=== PATIENT | female | born 1985 | race Hispanic/Latino ===

== ENCOUNTER 2018-04-02 06:03 | Emergency (ER) | payer SELFPAY ==
[2018-04-02] MEDS ORDERED: ONDANSETRON 4 MG (ODT) TAB ONE (06:26)
[2018-04-02] MEDS ORDERED: CEFTRIAXONE 1000 MG/VIAL ONE (06:35)
[2018-04-02] MEDS ORDERED: WATER FOR INJ,STERILE 10 ML ONE (06:36)
[2018-04-02 06:41] LABS: Urine Amorphous Sediment 2+ /HPF (NONE SEEN); Urine Bacteria LOADED /HPF (<20); Urine Culture Reflex Order NOT NEEDED; Urine RBC NONE SEEN /HPF (NONE SEEN)
[2018-04-02 06:44] LABS: Urine Blood NEGATIVE (NEG); Urine Glucose NEGATIVE (NEG); Urine Protein NEGATIVE (NEG); Urine Specific Gravity 1.015 (1.005-1.030); Urine pH 7.5 (5.0-7.0)
--- NOTE | 2018-04-02 08:24 | ER ---
Nurse's Notes [facility] Name: Mic Stokes Age: 32 yrs Sex: Female : 1985 Arrival Date: 04/02/2018 Time: 06:03 Bed 5 Private MD: None, None Diagnosis: state-8 weeks 4 days per US;Urinary tract infection, site not specified Presentation: 04/02 06:05 Presenting complaint: Patient states: that yesterday at 1700 she started to have lower fc back pain and radiates around to lower abd. Positive for nausea and vomiting but denies any diarrhea. Also denies any urinary problems. Transition of care: patient was not received from another setting of care. Onset of symptoms was April 01, 2018 at 17:00. Risk Assessment: Do you want to hurt yourself or someone else? Patient reports no desire to harm self or others. Care prior to arrival: None. 06:05 Method Of Arrival: Ambulatory 06:05 Acuity: GREGG 3 fc 06:16 Initial Sepsis Screen: Does the patient meet any 2 criteria? No. Patient's initial ak1 sepsis screen is negative. Does the patient have a suspected source of infection? No. Patient's initial sepsis screen is negative. Triage Assessment: 06:17 General: Appears in no apparent distress. Behavior is calm, cooperative. Pain: ak1 Complains of pain in suprapubic area, right lower quadrant and left lower quadrant. EENT: No signs and/or symptoms were reported regarding the EENT system. Neuro: No deficits noted. Cardiovascular: No deficits noted. Respiratory: No deficits noted. GI: Abdomen is flat, Bowel sounds present X 4 quads. Abd is soft X 4 quads Abdomen is tender to palpation in left upper quadrant and left lower quadrant Reports lower abdominal pain, nausea, vomiting. 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 - Social history:: Smoking status: Patient/guardian denies using tobacco. - Ebola Screening: : Patient negative for fever greater than or equal to 101.5 degrees Fahrenheit, and additional compatible Ebola Virus Disease symptoms Patient denies exposure to infectious person Patient denies travel to an Ebola-affected area in the 21 days before illness onset. Screenin:15 Abuse screen: Denies threats or abuse. Nutritional screening: No deficits noted. Tuberculosis screening: No symptoms or risk factors identified. Fall Risk None identified. Assessment: 06:40 Reassessment: Patient appears in no apparent distress at this time. No changes from ak1 previously documented assessment. Patient is alert, oriented x 3, equal unlabored respirations, skin warm/dry/pink. see triage assessment. 06:59 Reassessment: report given to Dank LOMBARDI and Татьяна RN. ak1 07:19 Reassessment: Patient and/or family updated on plan of care and expected duration. Pain jl7 level reassessed. Patient is alert, oriented x 3, equal unlabored respirations, skin warm/dry/pink. 08:20 Reassessment: pt laying in bed with eyes closed respiration even and unlabored, no jl7 signs of distress noted. Vital Signs: 06:16 BP 106 / 68; Pulse 80; Resp 18; Temp 98.5; Pulse Ox 99% on R/A; Weight 48.99 kg (R); Height 5 ft. 1 in. (154.94 cm) (R); Pain 7/10; 07:19 BP 97 / 59; Pulse 78; Resp 16; Pulse Ox 99% ; Pain 7/10; jl7 08:38 BP 96 / 64; Pulse 74; Resp 16; Pulse Ox 99% ; jl7 06:16 Body Mass Index 20.41 (48.99 kg, 154.94 cm) ED Course: 06:03 Patient arrived in ED. ds1 06:05 Arm band placed on Patient placed in an exam room, on a stretcher. fc 06:14 Triage completed. fc 06:15 Patient has correct armband on for positive identification. Bed in low position. Call light in reach. 06:15 No provider procedures requiring assistance completed. fc 06:16 Delia Kerr, RN is Primary Nurse. ak1 06:17 Karen Dorado FNP-C [facility]. snw 06:17 Keaton Lewis MD is Attending Physician. snw 06:44 None, None is Private Physician. ds1 07:00 Ultrasound completed. Patient tolerated well. aa4 07:01 US Transvaginal Ob In Process Unspecified. EDMS 07:19 Primary Nurse role handed off by Delia Kerr RN jl7 07:19 Dank Crowder, RN is Primary Nurse. jl7 08:38 Patient did not have IV access during this emergency room visit. jl7 Administered Medications: 06:32 Drug: Zofran 4 mg Route: PO; ak1 06:40 Follow up: Response: No adverse reaction ak1 06:40 Drug: Rocephin (cefTRIAXone) 1 grams Route: IM; Site: right gluteus; ak1 Outcome: 08:23 Discharge ordered by . kesha 08:38 Discharged to home ambulatory. jl7 08:38 Condition: stable 08:38 Discharge instructions given to patient, Instructed on discharge instructions, follow up and referral plans. medication usage, Demonstrated understanding of instructions, follow-up care, medications, Prescriptions given X 2. 08:38 Patient left the ED. jl7 Addendum: 04/05/2018 07:30 Addendum: Culture Results: Positive urine culture. No further action required. Bacteria s s sensitive to prescribed antibiotic. Signatures: Dispatcher [employer] EDCT Karen Dorado, PHARMACY CARE COORDINATOR-C PHARMACY CARE COORDINATOR-Csnw Denisa Elliott RN RN fc Sanford, Demi ds1 Eva Rizvi aa4 Emmie Muñoz RN RN Delia Kerr, RN RN ak1 Dank Crowder, MARIA C RN jl7
--- NOTE | 2018-04-02 08:24 | EDPHYS ---
Physician Documentation [facility] Name: Mic Stokes Age: 32 yrs Sex: Female : 1985 Arrival Date: 04/02/2018 Time: 06:03 Bed 5 Private MD: None, None ED Physician Keaton Lewis HPI: 04/02 08:29 This 32 yrs old Female presents to ER via Ambulatory with complaints of snw Abdominal Pain, Nausea. 08:29 The patient presents with abdominal pain in the lower abdomen. Onset: The snw symptoms/episode began/occurred gradually, yesterday. The symptoms radiate to back. Associated signs and symptoms: Pertinent positives: nausea. The symptoms are described as crampy. Severity of pain: At its worst the pain was moderate. The patient has not experienced similar symptoms in the past. The patient has not recently seen a physician. LMP 01/24/18. 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 - Social history:: Smoking status: Patient/guardian denies using tobacco. - Ebola Screening: : Patient negative for fever greater than or equal to 101.5 degrees Fahrenheit, and additional compatible Ebola Virus Disease symptoms Patient denies exposure to infectious person Patient denies travel to an Ebola-affected area in the 21 days before illness onset. ROS: 08:29 Constitutional: Negative for fever, chills, and weight loss, Eyes: Negative for injury, snw pain, redness, and discharge, ENT: Negative for injury, pain, and discharge, Neck: Negative for injury, pain, and swelling, Cardiovascular: Negative for chest pain, palpitations, and edema, Respiratory: Negative for shortness of breath, cough, wheezing, and pleuritic chest pain. 08:29 : Negative for injury, bleeding, discharge, and swelling, MS/Extremity: Negative for injury and deformity, Skin: Negative for injury, rash, and discoloration, Neuro: Negative for headache, weakness, numbness, tingling, and seizure. 08:29 Abdomen/GI: Positive for nausea and vomiting, abdominal cramps. 08:29 Back: Positive for radiated pain. Exam: 08:29 Constitutional: This is a well developed, well nourished patient who is awake, alert, snw and in no acute distress. Head/Face: Normocephalic, atraumatic. Eyes: Pupils equal round and reactive to light, extra-ocular motions intact. Lids and lashes normal. Conjunctiva and sclera are non-icteric and not injected. Cornea within normal limits. Periorbital areas with no swelling, redness, or edema. ENT: Nares patent. No nasal discharge, no septal abnormalities noted. Tympanic membranes are normal and external auditory canals are clear. Oropharynx with no redness, swelling, or masses, exudates, or evidence of obstruction, uvula midline. Mucous membranes moist. Neck: Trachea midline, no thyromegaly or masses palpated, and no cervical lymphadenopathy. Supple, full range of motion without nuchal rigidity, or vertebral point tenderness. No Meningismus. Chest/axilla: Normal chest wall appearance and motion. Nontender with no deformity. No lesions are appreciated. Cardiovascular: Regular rate and rhythm with a normal S1 and S2. No gallops, murmurs, or rubs. Normal PMI, no JVD. No pulse deficits. Respiratory: Lungs have equal breath sounds bilaterally, clear to auscultation and percussion. No rales, rhonchi or wheezes noted. No increased work of breathing, no retractions or nasal flaring. Abdomen/GI: Soft, non-tender, with normal bowel sounds. No distension or tympany. No guarding or rebound. No evidence of tenderness throughout. Back: No spinal tenderness. No costovertebral tenderness. Full range of motion. Skin: Warm, dry with normal turgor. Normal color with no rashes, no lesions, and no evidence of cellulitis. MS/ Extremity: Pulses equal, no cyanosis. Neurovascular intact. Full, normal range of motion. Neuro: Awake and alert, GCS 15, oriented to person, place, time, and situation. Cranial nerves II-XII grossly intact. Motor strength 5/5 in all extremities. Sensory grossly intact. Cerebellar exam normal. Normal gait. Psych: Awake, alert, with orientation to person, place and time. Behavior, mood, and affect are within normal limits. Vital Signs: 06:16 BP 106 / 68; Pulse 80; Resp 18; Temp 98.5; Pulse Ox 99% on R/A; Weight 48.99 kg (R); fc Height 5 ft. 1 in. (154.94 cm) (R); Pain 7/10; 07:19 BP 97 / 59; Pulse 78; Resp 16; Pulse Ox 99% ; Pain 7/10; jl7 08:38 BP 96 / 64; Pulse 74; Resp 16; Pulse Ox 99% ; jl7 06:16 Body Mass Index 20.41 (48.99 kg, 154.94 cm) fc MDM: 06:19 Patient medically screened. snw 08:29 Data reviewed: vital signs, nurses notes. Data interpreted: Pulse oximetry: on room air snw is 99 %. Interpretation: normal. Counseling: I had a detailed discussion with the patient and/or guardian regarding: the historical points, exam findings, and any diagnostic results supporting the discharge/admit diagnosis, lab results, radiology results, the need for outpatient follow up, to return to the emergency department if symptoms worsen or persist or if there are any questions or concerns that arise at home. Special discussion: Based on the history and exam findings, there is no indication for further emergent testing or inpatient evaluation. I discussed with the patient/guardian the need to see the OB Gyne specialist for further evaluation of the symptoms. I discussed with the patient/guardian the need to see the primary care provider for further evaluation of the symptoms. 04/02 06:18 Order name: Urine Culture w 04/02 06:18 Order name: Urine Microscopic Only; Complete Time: 07:04 w 04/02 06:23 Order name: US Transvaginal Ob w 04/02 06:24 Order name: Urine Dipstick--Ancillary (enter results); Complete Time: 07:04 eb 04/02 06:24 Order name: Urine --Ancillary (enter results); Complete Time: 07:04 eb 04/02 06:18 Order name: Urine Test (obtain specimen); Complete Time: 06:23 snw 04/02 06:18 Order name: Urine Dipstick-Ancillary (obtain specimen); Complete Time: 06:23 snw Administered Medications: 06:32 Drug: Zofran 4 mg Route: PO; ak1 06:40 Follow up: Response: No adverse reaction ak1 06:40 Drug: Rocephin (cefTRIAXone) 1 grams Route: IM; Site: right gluteus; ak1 Disposition: 20:33 Co-signature as Attending Physician, Keaton Lewis MD. rn Disposition: 04/02/18 08:23 Discharged to Home. Impression: state - 8 weeks 4 days per US, Urinary tract infection, site not specified. - Condition is Stable. - Discharge Instructions: Medicines During , First Trimester of , and Urinary Tract Infection. - Prescriptions for Vitamin 27- 0.8 mg Oral Tablet - take 1 tablet by ORAL route once daily; 60 tablet. Macrobid 100 mg Oral Capsule - take 1 capsule by ORAL route every 12 hours for 10 days; 20 capsule. - Medication Reconciliation Form, Thank You Letter, Antibiotic Education, Prescription Opioid Use form. - Work release form (04/02/18 08:47). snw - Follow up: Private Physician; When: 2 - 3 days; Reason: Recheck today's complaints, Continuance of care, Re-evaluation by your physician. Follow up: Emergency Department; When: As needed; Reason: Worsening of condition. Signatures: Dispatcher [employer] EDMS Karen Dorado, BREWMASTER-C BREWMASTER-Csnw Denisa Elliott, RN Keaton Martinez MD MD rn Krenek, Amber RN RN ak1 Dank Crowder RN RN jl7 Corrections: (The following items were deleted from the chart) 08:38 08:23 04/02/2018 08:23 Discharged to Home. Impression: state - 8 weeks 4 days jl7 per US; Urinary tract infection, site not specified. Condition is Stable. Forms are Medication Reconciliation Form, Thank You Letter, Antibiotic Education, Prescription Opioid Use. Follow up: Private Physician; When: 2 - 3 days; Reason: Recheck today's complaints, Continuance of care, Re-evaluation by your physician. Follow up: Emergency Department; When: As needed; Reason: Worsening of condition. snw
--- NOTE | 2018-04-02 09:28 | RAD REPORT ---
EXAM DESCRIPTION: US - Transvaginal OB - 04/02/2018 7:02 am CLINICAL HISTORY: with abdominal pain COMPARISON: None. FINDINGS: The uterus measures 10 x 6 x 7 centimeters. . A gestational sac is present within the end ometrium. Within this is a yolk sac and pole with a crown-rump length 2 centimeters. Cardiac ac tivity 176 beats per minute The ovaries are normal in size and echotexture. No significant free fluid is seen. IMPRESSION: Single live intrauterine with an estimated gestational age 8 weeks 4 days JULITO November 08, 2018
== END 2018-04-02 08:38 | disposition home or self-care (01) ==
LOC: ER 06:03
DX: O23.41 Unspecified infection of urinary tract in pregnancy, first trimester (principal); O21.8 Other vomiting complicating pregnancy
CPT/HCPCS: 76817; 81003; 81015; 81025; 87077; 87086; 87088; 87186; 96372; 99283

== ENCOUNTER 2022-12-15 18:49 | Emergency (ER) | payer OTHER ==
--- OUTSIDE RECORDS SUMMARY | 2022-12-15 18:54 | XMS REPORT | Continuity of Care Document ---
:1985 Author Organization [facility] t Address [address] [place] [address] Dr. Glover [address] [place] [id number] Care Team Providers Name Role Phone YENI ROCIO Attending Clinician Unavailable Yashira Monique Attending Clinician BENJIE HAMMER Attending Clinician Unavailable Lab, Adc Fam Pob I Attending Clinician Unavailable Benjie Hammer PA-C Attending Clinician Oneyda Dodd DO Attending Clinician Payers Payer Name Policy Type Policy Number Effective Date Expiration Date S alphonso JOHNNA [id number] 2016 00:00:00 JOHNNA [id number] 2021 00:00:00 Problems Condition Condition Condition Status Onset Resolution Last Treating Co mments Source Name Details Category Date Date Treatment Clinician Date No known No known Disease Unive rs active active ity of problems problems [facility] Allergies, Adverse Reactions, Alerts Allergy Allergy Status Severity Reaction(s) Onset Inactive Treating Comm ents Source Name Type Date Date Clinician NO KNOWN Drug Active Univers ALLERGIE Class ity of S [facility] Social History Social Habit Start Date Stop Date Quantity Comments Source Exposure to Unable to assess Univers ity of SARS-CoV-[address] [facility] (event) [place] Sex Assigned At [birth year] Universit y of 00:00:00 00:00:00 [facility] Smoking Status Start Date Stop Date Source Unknown if ever smoked [facility] Medications Ordered Filled Start Stop Current Ordering Indication Dosage Frequency Signature Comments Components Source Medication Medication Date Date Medication? Clinician (SIG) Name Name ondansetron 2020- No 4mg 4 mg, Univ ers (ZOFRAN-ODT 05-29 07-26 Oral, ity of ) 19:45: 18:45 ONCE, 1 [place] disintegrat 00 :00 dose, Mon Med ical ing tablet 05/29/21 at [facility] 4 mg 1445, Routine ondansetron Yes [id number] 4mg Take 1 Univers (ZOFRAN 7-26 tablet by ity of ODT) 4 mg 00:00: mouth [place] disintegrat 00 every 8 Medic al ing tablet (eight) Branch hours as needed for Nausea and Vomiting (N/V). ciprofloxac Yes [id number] 250mg Take 1 Univers in HCl 250 05-29 tablet by ity of mg tablet 00:00: mouth 2 [place] 00 (two) Medical times Branch daily. ondansetron 2020- No [id number] 4mg Take 1 Univers (ZOFRAN 05-29 tablet by ity of ODT) 4 mg 00:00: 00:00 mouth [place] disintegrat 00 :00 every 8 Medic al ing tablet (eight) Branch hours as needed for Nausea and Vomiting (N/V). ciprofloxac 2020- No [id number] 250mg Take 1 Univers in HCl 250 05-29 tablet by ity of mg tablet 00:00: 00:[place] (two) Medical times Branch daily. azithromyci 2018- No 1000mg 1,000 mg, Univers n 06-10 Oral, ity of (ZITHROMAX) 18:45: 17:48 [place]CE[place] 1 [place] :[place] dose, Wed Medical 1,000 mg 06/10/19 at Branch 1345, IGGY
Re ason for Anti-Infec tive: Empiric Therapy for Suspected Infection< br>Empiric Therapy Site: Pelvic
Duration of therapy: 72 hours cefTRIAXone 2018- No 250mg 250 mg, U nivers (ROCEPHIN) 06-10 Intramuscu it y of injection 18:45: 17:48 lar, ONCE, [place] 250 mg 00 :00 1 dose, Medical 06/10/19 Branch at 1345, IGGY
Re ason for Anti-Infec tive: Empiric Therapy for Suspected Infection< br>Empiric Therapy Site: Pelvic
Duration of therapy: 72 hours traMADOL 2018-0 Yes 50mg Take 1 Univers (ULTRAM) 50 1-25 tablet by ity of mg tablet 00:00: mouth [place] 00 every 6 Medical (six) Branch hours as needed for Pain (scale 4-6). traMADOL 2018-0 Yes 50mg Take 1 Univers (ULTRAM) 50 1-25 tablet by ity of mg tablet 00:00: mouth [place] 00 every 6 Medical (six) Branch hours as needed for Pain (scale 4-6). traMADOL 2018-0 Yes 50mg Take 1 Univers (ULTRAM) 50 1-25 tablet by ity of mg tablet 00:00: mouth [place] 00 every 6 Medical (six) Branch hours as needed for Pain (scale 4-6). Vital Signs Vital Name Observation Time Observation Value Comments Source Systolic blood 2021-05-29 17:55:00 145 mm[Hg] Univer sity [facility] Diastolic blood 2021-05-29 17:55:00 73 mm[Hg] Unive [facility] Heart rate 2021-05-29 17:55:00 103 /min [facility] Body temperature 2021-05-29 17:55:00 37.06 Alina [facility] Respiratory rate 2021-05-29 17:55:00 18 /min [facility] Body weight 2021-05-29 17:55:00 48.081 kg [facility] BMI 2021-05-29 17:55:00 20.70 kg/m2 [facility] Oxygen saturation in 2021-05-29 17:55:00 100 /min [facility] Arterial blood by [facility] Pulse oximetry Branch Systolic blood 2019-06-10 17:17:00 125 mm[Hg] [facility] blood 2019-06-10 17:17:00 80 mm[Hg] Unive [facility] Heart rate 2019-06-10 17:17:00 100 /min [facility] Body temperature 2019-06-10 17:17:00 36.67 Alina [facility] Respiratory rate 2019-06-10 17:17:00 16 /min [facility] Oxygen saturation in 2019-06-10 17:17:00 98 /min [facility] Arterial blood by [facility] Pulse oximetry Branch Body weight 2019-06-10 17:00:[address] [facility] ty [facility] BMI 2019-06-10 17:00:00 20.70 kg/m2 [facility] Procedures Procedure Date / Time Performed Performing Clinician Sourc e POCT TEST 2021-05-29 18:01:00 Oneyda Dodd [facility] URINALYSIS 2021-05-29 18:00:00 [facility] COVID-19 (ID NOW RAPID 2021-05-29 18:00:00 [facility] NOTICE OF PRIVACY 2021-05-29 17:37:09 Doctor Unassigned, No Univ ersity [facility] PRACTICES Name [facility] CONSENT/REFUSAL FOR 2021-05-29 17:36:39 [facility]igned, [facility] Name [facility] TREATMENT POCT TEST 2019-06-10 17:34:00 Oneyda Dodd [facility] Encounters Start End Encounter Admission Attending Care Care Encounter Source Date/Time Date/Time Type Type Clinicians Facility Department ID 2021-09-04 Emergency [facility] [id number] Univers [facility] 2021-08-08 2021-08-08 Outpatient [place] [id number] Univers 10:00:00 10:00:00 ROCIO palmer [facility] 2021-05-29 2021-05-29 Emergency [facility] [id number] Univers 13:01:00 14:44:00 Yashira Yuen [id number] i ty [facility] [id number] [facility] [id number] [facility] 084 Branch 2020-12-13 2020-12-13 Outpatient [place] [id number] Univers 16:00:00 16:00:00 ROCIO palmer [facility] 2020-11-04 2020-11-04 Outpatient [place] [id number] Univers 16:20:00 16:20:00 BENJIE palmer [facility] 2020-11-04 2020-11-04 Laboratory Lab, Adc Fam Pob I [facility] [id number] Univers 14:49:03 15:09:03 Only Benjie Hammer [id number] ity of [place] [id number] Geoffrey as [facility] [id number] Mi dical nal [address] [place] [address] 2019-06-10 2019-06-10 Emergency [facility] [id number] [facility] 12:11:29 13:32:00 Oneyda Yuen [id number] [id number] [facility] [id number] [place] [id number] [place] Results Test Description Test Time Test Comments Results Result Comments Source COVID-19 (ID NOW RAPID TESTING) 2021-05-29 18:20:50 Test Item Value Reference Range Interpretation Comme nts SARS-CoV-2 Rapid ID NOW (test code Not Detected Not Detected = 21310-0) JAMARCUS (test code = JAMARCUS) ID NOW COVID-19 Assay is an isothermal nucleic acid amplification test intended for the qualitative detection of nucleic acid from SARS-CoV-2 viral RNA in nasopharyngeal (TUG BOAT ENGINEER) specimens. It is used under Emergency Use Authorization (EUA) by FDA. The limit of detection (LOD) of the assay is 125 Genome Equivalents/mL. A positive result is indicative of the presence of SARS-CoV-2 RNA. ?Clinical correlation with patient history and other diagnostic information is necessary to determine patient infection status. A negative (Not Detected) result does not preclude SARS-CoV-2 infection. In patients with clinical symptoms and other tests that are consistent with SARS-CoV-2 infection, negative results should be treated as presumptive negative and a new specimen should be tested with alternative PCR molecular test. Invalid: Please collect a new specimen for repeat patient testing if clinically indicated. Lab Interpretation (test code = Normal 35522-1) [facility]:19[facility]38 Test Item Value Reference Range Interpretation Comments APPEARANCE (test code = Cloudy Clear A 8155099104) COLOR (test code = Delia Yellow A 7756447142) PH (test code = 4.8-8.0 7600970092) SP GRAVITY (test code = 1.003-1.030 9483416548) GLU U QUAL (test code = Normal Normal 7359454912) BLOOD (test code = 3+ Negative A 1447039372) KETONES (test code = 5 mg/dL Negative A 6999030554) PROTEIN (test code = 100 mg/dL Negative A 2887-8) UROBILIN (test code = 2.0 mg/dL Normal A 0337482871) BILIRUBIN (test code = Negative Negative 5190278808) NITRITE (test code = Positive Negative A 3903489825) LEUK ZAC (test code = 250/uL Negative A 6177966197) RBC/HPF (test code = See_Comment H [Autom ated message] 2849213691) The system [employer] generated this result transmit jorge reference range : 0 - 3 HPF. The refe rence range was not u sed to interpret th is result as normal/abnormal . WBC/HPF (test code = See_Comment H [Autom ated message] 7213521461) The system [employer] generated this result transmit jorge reference range : 0 - 5 HPF. The refe rence range was not u sed to interpret th is result as normal/abnormal . BACTERIA (test code = Many Negative A 8853114200) MUCOUS (test code = Marked Negative LPF A 5798539491) SQ EPITH (test code = HPF 5003535343) HYAL CAST (test code = See_Comment H [Aut omated message] 3879310189) The system [employer] generated this result transmit jorge reference range : <=2 LPF. The refere nce range was not u sed to interpret th is result as normal/abnormal . Lab Interpretation (test Abnormal code = 67871-5) General acute hospital [id number] 18:01:00 Test Item Value Reference Range Interpretation Comments POCT PREG (test code = 1605) negative On board controls acceptable with present C Line (test code = 3574) POCT PREG LOT # (test code = 3575) [id number] POCT PREG TEST DATE (test code = 3576) Lab Interpretation (test code = Normal 52458-3) General acute hospital Test, [id number] 17:34:00 Test Item Value Reference Range Interpretation Comments POCT PREG (test code = 1605) negative On board controls acceptable with present C Line (test code = 3574) POCT PREG LOT # (test code = 3575) [id number] POCT PREG TEST DATE (test 11-03-2020 code = 3576) Lab Interpretation (test code = Normal 70014-6) [facility]
[2022-12-15] MEDS ORDERED: ONDANSETRON 4 MG (ODT) TAB ONE (19:47)
--- NOTE | 2022-12-15 21:00 | EDPHYS ---
Physician Documentation [facility] Name: Mic Stokes Age: 37 yrs Sex: Female : 1985 Arrival Date: 12/15/2022 Time: 18:53 Bed 16 Private MD: ED Physician Dung Jameson HPI: 12/15 20:06 This 37 yrs old Female presents to ER via Ambulatory with complaints of ms3 Vomiting. 20:06 37-year-old female with no past medical history presents for vomiting that began at 9 ms3 AM. Patient states she has vomited 7 times throughout the day. Patient denies abdominal pain, diarrhea. Patient states she drank a bunch of alcohol yesterday. Patient has attempted taking Pedialyte and vpib-tsm-aelcjoh nausea medications and has been unable to tolerate p.o. Patient denies pain at this time. Patient denies alleviating or inciting factors.. 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 - Social history:: Smoking status: Patient denies any tobacco usage or history of. ROS: 20:06 Constitutional: Negative for fever, and chills. Neck: Negative for injury, pain, and ms3 swelling, Cardiovascular: Negative for chest pain, and palpitations. Respiratory: Negative for shortness of breath, cough, wheezing, and pleuritic chest pain. 20:06 MS/Extremity: Negative for injury and deformity, Skin: Negative for injury, rash, and discoloration. 20:06 Abdomen/GI: Positive for nausea and vomiting, Negative for abdominal pain, diarrhea. 20:06 All other systems are negative. Exam: 20:06 Constitutional: This is a well developed, well nourished patient who is awake, alert, ms3 and in no acute distress. Head/Face: Normocephalic, atraumatic. Neck: Trachea midline, no cervical lymphadenopathy. Supple, full range of motion without nuchal rigidity, or vertebral point tenderness. No Meningismus. Chest/axilla: Normal chest wall appearance and motion. Nontender with no deformity. Cardiovascular: Regular rate and rhythm with a normal S1 and S2. No gallops, murmurs, or rubs. Normal PMI, no JVD. No pulse deficits. Respiratory: Lungs have equal breath sounds bilaterally, clear to auscultation and percussion. No rales, rhonchi or wheezes noted. No increased work of breathing, no retractions or nasal flaring. Abdomen/GI: Soft, non-tender, with normal bowel sounds. No distension or tympany. No guarding or rebound. No evidence of tenderness throughout. Skin: Warm, dry with normal turgor. Normal color with no rashes, no lesions, and no evidence of cellulitis. MS/ Extremity: Pulses equal, no cyanosis. Neurovascular intact. Full, normal range of motion. Vital Signs: 19:12 BP 152 / 97; Pulse 117; Resp 18; Temp 98.2(O); Pulse Ox 100% on R/A; Weight 47.63 kg ll3 (R); Height 5 ft. 3 in. (160.02 cm) (R); 20:36 BP 132 / 94; Pulse 98; Resp 19; Pulse Ox 100% ; Pain 0/10; ke1 21:14 BP 121 / 89; Pulse 96; Resp 17; Temp 98.2; Pulse Ox 100% ; Pain 0/10; ke1 19:12 Body Mass Index 18.60 (47.63 kg, 160.02 cm) ll3 MDM: 19:15 Patient medically screened. ms3 20:06 Differential diagnosis: Nonspecific abd pain, gastritis, viral gastroenteritis. ms3 20:59 Data reviewed: vital signs, nurses notes, and as a result, I will discharge patient. I ms3 considered the following discharge prescriptions or medication management in the emergency department Medications were administered in the Emergency Department. See MAR. Test considered but Not performed: Labs: Labs not obtained as patient is afebrile, without abdominal pain. CT: Patient without focal abdominal pain. Counseling: I had a detailed discussion with the patient and/or guardian regarding: the historical points, exam findings, and any diagnostic results supporting the discharge/admit diagnosis, the need for outpatient follow up, to return to the emergency department if symptoms worsen or persist or if there are any questions or concerns that arise at home. ED course: On reevaluation patient is alert and oriented x4, in no apparent distress, nontoxic-appearing, abdomen benign, tolerating p.o. Patient to follow-up with her primary care physician in 2 to 3 days. Patient understands and agrees with plan. Prescription for Zofran given. All questions were answered. Return precautions discussed include fevers, inability to tolerate p.o., worsening symptoms, or any other concerns.. 12/15 19:15 Order name: PO challenge; Complete Time: 20:27 ms3 Administered Medications: 19:45 Drug: Ondansetron 4 mg Route: PO; ke1 Disposition Summary: 12/15/22 20:59 Discharge Ordered Location: Home ms3 Condition: Stable ms3 Diagnosis - Nausea with vomiting, unspecified ms3 Followup: ms3 - With: Anjel Nagel DO - When: 2 - 3 days - Reason: Recheck today's complaints Discharge Instructions: - Discharge Summary Sheet ms3 - Nausea and Vomiting, Adult ms3 Forms: - Medication Reconciliation Form ms3 - Thank You Letter ms3 - Antibiotic Education ms3 - Prescription Opioid Use ms3 Prescriptions: - ondansetron 4 mg Oral - take 4 milligrams by SUBLINGUAL route every 8 hours; 15 tablet; Refills: 0, ms3 Product Selection Permitted Signatures: Dung Jameson DO DO ms3 Maria Del Rosario Ball RN RN ll3 Crystal Hillman RN RN ke1 Corrections: (The following items were deleted from the chart) 19:14 19:14 Home Meds: Unable to obtain; ll3 ll3
--- NOTE | 2022-12-15 21:00 | ER ---
Nurse's Notes [facility] Name: Mic Stokes Age: 37 yrs Sex: Female : 1985 Arrival Date: 12/15/2022 Time: 18:53 Bed 16 Private MD: Diagnosis: Nausea with vomiting, unspecified Presentation: 12/15 19:12 Chief complaint: Patient states: C/o N/V, chills, and weakness since 0900, states "I ll3 did drink alcohol yesterday". Coronavirus screen: Vaccine status: Patient reports being unvaccinated. chills, nausea, vomiting. Ebola Screen: No symptoms or risks identified at this time. Initial Sepsis Screen: Does the patient meet any 2 criteria? No. Patient's initial sepsis screen is negative. Does the patient have a suspected source of infection? No. Patient's initial sepsis screen is negative. Risk Assessment: Do you want to hurt yourself or someone else? Patient reports no desire to harm self or others. Onset of symptoms was December 15, 2022 at 09:00. 19:12 Method Of Arrival: Ambulatory ll3 19:12 Acuity: GREGG 3 ll3 Triage Assessment: 19:15 General: Appears uncomfortable, Behavior is appropriate for age. Pain: Denies pain. ke1 Neuro: Level of Consciousness is awake, alert, Oriented to person, place, time, situation. GI: Reports nausea. 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 - Social history:: Smoking status: Patient denies any tobacco usage or history of. Screenin:15 [facility] ED Fall Risk Assessment (Adult) History of falling in the last 3 months, ke1 including since admission No falls in past 3 months (0 pts) Confusion or Disorientation No (0 pts) Intoxicated or Sedated No (0 pts) Impaired Gait No (0 pts) Mobility Assist Device Used No (0 pt) Altered Elimination No (0 pt) Score/Fall Risk Level 0 - 2 = Low Risk. Abuse screen: Denies threats or abuse. Nutritional screening: No deficits noted. Tuberculosis screening: No symptoms or risk factors identified. Assessment: 20:27 Reassessment: Passed PO challenge. ke1 20:34 GI: Reports. ke1 20:35 Reassessment: Patient appears in no apparent distress at this time. Patient is alert, ke1 oriented x 3, equal unlabored respirations, skin warm/dry/pink. 21:15 Reassessment: Patient states feeling better. Patient states symptoms have improved. ke1 Vital Signs: 19:12 BP 152 / 97; Pulse 117; Resp 18; Temp 98.2(O); Pulse Ox 100% on R/A; Weight 47.63 kg ll3 (R); Height 5 ft. 3 in. (160.02 cm) (R); 20:36 BP 132 / 94; Pulse 98; Resp 19; Pulse Ox 100% ; Pain 0/10; ke1 21:14 BP 121 / 89; Pulse 96; Resp 17; Temp 98.2; Pulse Ox 100% ; Pain 0/10; ke1 19:12 Body Mass Index 18.60 (47.63 kg, 160.02 cm) ll3 ED Course: 18:53 Patient arrived in ED. mr 19:04 Dung Jameson DO is Attending Physician. ms3 19:08 Crystal Hillman RN is Primary Nurse. ke1 19:14 Triage completed. ll3 19:14 Arm band placed on Patient placed in an exam room, on a stretcher, on pulse oximetry. ll3 19:15 Bed in low position. Call light in reach. ke1 20:59 Anjel Nagel DO is Referral Physician. ms3 21:14 No provider procedures requiring assistance completed. Patient did not have IV access ke1 during this emergency room visit. Administered Medications: 19:45 Drug: Ondansetron 4 mg Route: PO; ke1 Medication: 21:15 VIS not applicable for this client. ke1 Outcome: 20:59 Discharge ordered by . ms3 21:15 Discharged to home ambulatory. ke1 21:15 Condition: good 21:15 Discharge instructions given to patient. 21:15 Patient left the ED. ke1 Signatures: Thais Wilder mr Dung Jameson DO DO ms3 Maria Del Rosario Ball RN RN ll3 Crystal Hillman RN RN ke1 Corrections: (The following items were deleted from the chart) 19:14 19:14 Home Meds: Unable to obtain; ll3 ll3
[2022-12-15 21:21] VITALS: TEMP 98.2; O2SAT 100
[2022-12-15 21:24] VITALS: BP 121/89
== END 2022-12-15 21:15 | disposition home or self-care (01) ==
LOC: ER 18:49
DX: R11.2 Nausea with vomiting, unspecified (principal)
CPT/HCPCS: 99283; Q0162